=== PATIENT | male | born 1960 | race Caucasian/White ===

== ENCOUNTER 2024-05-29 20:42 | Emergency (ER) | payer MEDICARE, SELFPAY ==
[2024-05-29 20:43] VITALS: BP 101/63; PULSE 99; RESP 16; TEMP 36.4; O2SAT 97
--- NOTE | 2024-05-29 20:47 | EDS_ITS ---
HPI History of Present Illness Chief Complaint: Syncope [facility] Medical History no medical history Home Medications ?Medication ?Instructions ?Recorded ?Last Taken ?Type NK 05/29/24 Unknown History Allergy/AdvReac Type Severity Reaction Status Date / Time No Known Allergies Allergy Verified 05/29/24 20:46 Family History no significant family his Surgical History no surgical history Social History Smoking Status: Heavy Smoker (>10/day) EXAM Physical Exam Const Vital Signs: 05/29/24 20:43 05/29/24 20:47 05/29/24 20:52 Temperature 97.5 F L Temperature Source Oral Pulse Rate 99 Pulse Rate [Lying] 97 Pulse Rate [Sitting (for 1 minute prior to obtaining)] 100 Pulse Rate [Standing (for 1 minute prior to obtaining)] 104 H Respiratory Rate 16 Respiratory Effort Normal Respiratory Pattern Normal Blood Pressure 101/63 Blood Pressure [Lying] 108/70 Blood Pressure [Sitting (for 1 minute prior to obtaining)] 102/60 Blood Pressure Mean 75 Blood Pressure Mean [Lying] 82 Blood Pressure Mean [Sitting (for 1 minute prior to obtaining)] 74 Pulse Ox 97 Oxygen Delivery Method Room Air 05/29/24 21:15 05/29/24 22:42 Temperature Temperature Source Pulse Rate 85 Pulse Rate [Lying] Pulse Rate [Sitting (for 1 minute prior to obtaining)] Pulse Rate [Standing (for 1 minute prior to obtaining)] Respiratory Rate 18 Respiratory Effort Respiratory Pattern Blood Pressure 106/75 Blood Pressure [Lying] Blood Pressure [Sitting (for 1 minute prior to obtaining)] Blood Pressure Mean 85 Blood Pressure Mean [Lying] Blood Pressure Mean [Sitting (for 1 minute prior to obtaining)] Pulse Ox 94 94 Oxygen Delivery Method Room Air Room Air MDM MDM MDM Narrative Medical decision making narrative: HISTORY OF PRESENT ILLNESS: 64-year-old male presents via EMS with concern for syncope. Per EMS patient was drinking 8-10 beers tonight. He had a syncopal episode. Notes this is the fourth episode the patient had a last 2 to 3 weeks. Notes atraumatic syncope. No sustained no stool in 20 slumped over. Patient no vomiting, no diarrhea. No bleeding diathesis. No chest pain. No shortness of breath. No history of heart attack or heart failure. The patient denies recent surgery in the last 4 weeks or immobilization in the last 3 days, denies previous diagnosis of DVT or PE, hemoptysis, unilateral leg swelling or malignancy with treatment the last 6 months or palliative. No estrogen use noted. REVIEW OF SYSTEMS: Pertinent positives: Syncope Pertinent negatives: Chest pain, shortness of breath, fever PHYSICAL EXAM: Nursing triage notes reviewed, Vital signs reviewed Constitutional: please see mdm HENT: MMM Eyes: Pupils equal round and reactive to light, Extraocular muscles intact Neck: No stridor, no JVD, full neck ROM Lungs: Clear to auscultation, No wheezing or rales. No increased work of breathing, no conversational dyspnea, no accessory muscle use, no nasal flaring. No respiratory distress noted Heart: Regular rate and rhythm, No murmurs, No rubs and No gallops, 2+ distal pulses (radial, femoral, posterior tibial) in all extremities Abdomen: Soft, there is no tenderness, rigidity, rebound or guarding, no obvious peritoneal signs, no palpable pulsatile abdominal masses, no auscultated abdominal bruit : No CVAT Extremities: No edema Neuro: No new focal neurological deficits, cranial nerves II through XII intact, 5/5 strength in all present extremities. Intact sensation to light touch in all present extremities, 2+ reflexes bilateral patella tendons. Skin: No rash or lesions noted MEDICAL DECISION MAKING: Chief Complaint: Syncope External records reviewed: Reviewed prior cardiovascular testing. No recent echocardiograms noted Factors affecting care: none Social determinants of health: Alcohol abuse History obtained from others: EMS Consults: none [facility] Narrative: Patient was initially hemodynamically stable, afebrile and nontoxic-appearing. Exam without focal cardiopulmonary maladies. I considered the following differential diagnosis: Alcohol intoxication, dehydration, arrhythmia, anemia, electrolyte disturbance, IVs placed. Patient was placed on the monitor. I obtained a broad lab and imaging workup to further elucidate etiology of the patient's complaints ALL IMAGES (IF OBTAINED) HAVE BEEN PERSONALLY REVIEWED AND INTERPRETED BY MYSELF. EKG with normal sinus rhythm rate of 94, normal axis, normal intervals, no STEMI High-sensitivity troponin is negative, no evidence of myocardial ischemia BMP without evidence of significant electrolyte abnormalities, no acute kidney injury. Noted elevated anion gap and signs of metabolic acidosis likely secondary to alcohol induced ketoacidosis. I have personally reviewed the patient's chest x-ray. Chest x-ray is unremarkable for pulmonary edema, pneumothorax, pneumonia or focal cardiopulmonary abnormality. CBC with no leukocytosis, mild anemia, no thrombocytopenia Upon re-evaluation blood pressure improved to 118/75. Patient and sister requested to be discharged the patient felt much better risk and benefits of discharge prior to delta troponin being resulted were discussed. The patient and sister were alert and oriented. They are clinically sober. They displayed capacity to make their own medical decisions and chose to forego additional lab testing at this time and lieu of PROM discharge and outpatient follow-up. Encouraged more p.o. fluid intake, healthy diet and to decrease alcohol use over time. Offered detoxification admission however patient refused. Stating does not drink every day only drinks once or twice a week. The patient and/or family, caregivers express understanding. The patient and/or family, caregivers agrees with the plan. Shared decision making: I will have a discussion with the patient and or visitors regarding risk/benefits of further testing or admission. They will be made aware of of the risk/benefits inherent in this decision they will be given the opportunity to voice understanding. Total critical care time today provided was at least 0 minutes. This excludes separately billable procedures. Critical care time (if documented) is secondary to the patient having high probability of clinically significant/life threatening deterioration in the patient's condition which required my urgent intervention. Impression: 1. Syncope 2. Alcohol abuse 3. Dehydration Dispo: Discharge home This note was generated with bepretty dictation software. It may contain incorrect words, spelling, and punctuation that were not noted in review of the chart prior to signing. Lab Data Labs: Laboratory Results - last 24 hr 05/29/24 20:59 WBC 9.6 RBC 3.83 L Hgb 12.5 L Hct 36.6 L MCV 95.6 H MCH 32.6 H MCHC 34.2 RDW Std Deviation 44.8 H RDW Coeff of [place] 12.9 Plt Count 229 MPV 10.5 Immature Gran % (Auto) 1.300 H Neut % (Auto) 55.3 Lymph % (Auto) 31.8 [place] % (Auto) 6.7 Eos % (Auto) 3.9 Baso % (Auto) 1.0 Absolute Neuts (auto) 5.3 Absolute Lymphs (auto) 3.04 Nucleated RBC % 0 Sodium 137 Potassium 3.5 Chloride Direct 101 Carbon Dioxide 18.5 L Anion Gap 17 H BUN 12 Creatinine 1.15 Estim Creat Clear Calc 83.19 Est GFR (MDRD) Non-Af 71 BUN/Creatinine Ratio 10.3 Glucose 124 H Calcium 8.6 Troponin T High Sens 6 Radiography Diagnostic Testing: Clinical Impression(s) from Imaging Studies Chest X-Ray 05/29/24 21:30 IMPRESSION: No radiographic evidence of acute cardiopulmonary disease Reading [facility] Discharge Plan Triage Chief Complaint: Syncope ED Provider: Cruz Harris Dx/Rx/DC Orders Instructions: Dehydration, ED Fainting, Uncertain Cause Prescriptions: No Action NK Primary Care Provider: Care Physician,No Primary Referrals: Ashley More MD [Med Staff - Material Planner] - Activity Restrictions/Additional Instructions: Thank you for trusting us with your care today! Your presentation today is most consistent with dehydration likely secondary to excessive alcohol use. Please try to increase your oral fluid intake. Recommend Body Armor, Pedialyte or Gatorade. Please try to decrease your alcohol use over time. Do not stop all at once or cold turkey. Please take Tylenol (2 pills, 650 mg), ibuprofen (2 pills, 400 mg) every 6 hours as needed for pain and fever control. Please return to the emergency department if your symptoms change or worsen. Specifically develop chest pain, shortness of breath, if you lose consciousness. Please follow with your primary care physician for further outpatient evaluation and management. Print Language: Ivorian Disposition Disposition: Home, Self Care
[2024-05-29 20:52] VITALS: BP 102/60; BP 108/70; PULSE 100; PULSE 104; PULSE 97
--- NOTE | 2024-05-29 21:09 | EKG12_ITS ---
Test Reason : DYSRHYTHMIA Blood Pressure : */* mmHG Vent. Rate : 94 BPM Atrial Rate : 94 BPM P-R Int : 158 ms QRS Dur : 80 ms QT Int : 364 ms P-R-T Axes : 53 71 50 degrees QTcB Int : 455 ms Normal sinus rhythm Normal ECG Confirmed by Kj Cantu ([id number]), editor department ABHISHEK LITTLE ([id number]) on 06/01/2024 10:50:58 AM Referred By: TA Confirmed By: Kj Cantu
[2024-05-29] MEDS: 0.9% Normal Saline (1000mL) 1,000 ML 999 ML IV ×2 (21:12)
[2024-05-29 21:15] VITALS: O2SAT 94
[2024-05-29 21:25] LABS: Absolute Lymphocyte Count 3.04 X10^3/uL (0.83-4.51); Absolute Neutrophil Count 5.3 X10^3/uL (2.0-7.7); Eosinophil# 0.37 X10^3/uL; Eosinophils% 3.9 % (0-5); Hematocrit 36.6 % (40-54); Hemoglobin 12.5 g/dL (13.0-16.5); Lymphocyte # 3.04 X10^3/ul (0.83-4.51); Lymphocyte % 31.8 % (19-41); Mean Corp Hgb Conc 34.2 g/dL (32-36); Mean Corpuscular Hgb 32.6 pg (27.0-32.0); Mean Corpuscular Volume 95.6 fL (80-94); Mean Platelet Vol. 10.5 fl (6.2-12.0); Monocyte# 0.64 X10^3/uL; Monocyte% 6.7 % (0-10); NRBC Flagged by Analyzer 0 % (0-5); Neutrophil # 5.28 X10^3/uL (2.7-7.7); Neutrophil % 55.3 % (47-70); Platelet Count 229 K/mm3 (150-450); RBC Distribution Width CV 12.9 % (11.6-14.6); RBC Distribution Width SD 44.8 fl (35.1-43.9); Red Blood Count 3.83 M/mm3 (4.6-6.2); White Blood Count 9.6 K/mm3 (4.4-11.0)
--- NOTE | 2024-05-29 21:30 | RAD_ITS ---
PROCEDURE: CHEST 1 VIEW (PORTABLE) REASON FOR EXAM: Chest pain TECHNIQUE: Frontal view of the chest. COMPARISON: None. FINDINGS: The heart size is normal. The mediastinal contour is unremarkable. The lungs are clear. The bones are unremarkable. RAD/Chest 1 View (Portable) IMPRESSION: No radiographic evidence of acute cardiopulmonary disease Reading Location: [facility]
[2024-05-29 22:03] LABS: Anion Gap 17 (5-15); BUN 12 mg/dL (4-19); BUN/Creat Ratio 10.3 RATIO (10-20); Calcium 8.6 mg/dL (7.6-11.0); Carbon Dioxide 18.5 mmol/L (22.0-29.0); Chloride 101 mmol/L (96-108); Creatinine, Serum 1.15 mg/dL (0.70-1.20); EST Glomerular Filtration Rate 71 (>60); Estimated Creatinine Clearance 83.19 ml/min; Glucose 124 mg/dL (70-99); Potassium 3.5 mmol/L (3.3-5.1); Sodium Level 137 mmol/L (133-145); Troponin T High Sensitivity 6 ng/L (<=22)
[2024-05-29 22:42] VITALS: BP 106/75; PULSE 85; RESP 18; O2SAT 94
[2024-05-29 23:17] VITALS: BP 118/97; PULSE 85; RESP 18; TEMP 36.8; O2SAT 96
== END 2024-05-29 23:24 | disposition home or self-care (01) ==
PROVIDERS: Emergency Provider Emergency Medicine; Visit Provider Emergency Medicine
DX: R55 Syncope and collapse (principal); F17.200 Nicotine dependence, unspecified, uncomplicated; E86.0 Dehydration; F10.10 Alcohol abuse, uncomplicated
CPT/HCPCS: 71045; 80048; 84484; 85025; 93005; 96360; 96361; 99285; A4216